=== PATIENT | female | born 1965 | race African-American/Black ===

== ENCOUNTER 2020-06-07 12:36 | Inpatient (IN) ==
[2020-06-07] MEDS ORDERED: *HR* FentaNYL (PF) 100 MCG/2 ML VIAL ONE (12:46)
[2020-06-07] MEDS ORDERED: *HR* Propofol 200 MG/20 ML VIAL IVP ONE (12:46)
[2020-06-07] MEDS ORDERED: *HR* Midazolam HCl 2 MG/2 ML VIAL ONE (12:46)
[2020-06-07] MEDS ORDERED: Ondansetron 4 MG/2 ML VIAL ONE (12:47)
[2020-06-07] MEDS ORDERED: *HR* Succinylcholine 200 MG/10 ML VIAL IVP ONE (12:47)
[2020-06-07] MEDS ORDERED: Lidocaine -MPF 4% 5 ML AMPUL ONE (12:47)
[2020-06-07] MEDS ORDERED: Dexamethasone 4 MG/ML VIAL ONE (12:47)
[2020-06-07] MEDS ORDERED: *HR* Rocuronium Bromide 50 MG/5 ML VIAL ONE (12:47)
[2020-06-07] MEDS ORDERED: Lidocaine -MPF 2% 2 ML VIAL ONE (12:47)
[2020-06-07] MEDS ORDERED: Ondansetron 4 MG/2 ML VIAL IVP PRN (12:55)
[2020-06-07] MEDS ORDERED: *HR* Labetalol 20 MG/4 ML SYRINGE IVP PRN (12:55)
[2020-06-07] MEDS ORDERED: *HR* HYDROmorphone (PF) 1 MG/ML SYRINGE IVP PRN (12:55)
[2020-06-07] MEDS ORDERED: *HR* Promethazine 25 MG/ML VIAL IVP PRN (12:55)
[2020-06-07] MEDS ORDERED: CeFAZolin Syr 2,000MG/20 ML 2,000 MG/20 ML SYRINGE IVPB ONE (12:59)
[2020-06-07] MEDS ORDERED: Famotidine 20 MG/2 ML VIAL IVP ONE (13:00)
[2020-06-07] MEDS ORDERED: Ringers Solution, Lactated 1,000 ML IVC SCH ×2 (13:00→13:15)
[2020-06-07] MEDS ORDERED: Ipratropium/Albuterol Neb 3 ML IH PRN (13:10)
[2020-06-07] MEDS ORDERED: Ketorolac 30 MG/ML VIAL ONE (14:14)
[2020-06-07] MEDS ORDERED: *HR* HYDROMORPHONE 2 MG/ML VIAL ONE (14:25)
[2020-06-07] MEDS: Gabapentin 300 MG CAPSULE PO SCH ×2 (17:10→23:04)
[2020-06-07] MEDS: Ketorolac 15 MG/ML VIAL IVP SCH ×2 (17:10→23:04)
[2020-06-07] MEDS: *HR* HYDROcodone/Acet 5/325 mg TABLET PO PRN (19:52)
[2020-06-08] MEDS: *HR* HYDROcodone/Acet 5/325 mg TABLET PO PRN ×2 (04:24→18:54)
[2020-06-08] MEDS: Ketorolac 15 MG/ML VIAL IVP SCH ×4 (06:47→23:48)
[2020-06-08] MEDS: Gabapentin 300 MG CAPSULE PO SCH ×3 (07:48→20:32)
[2020-06-08] MEDS ORDERED: RAMELTEON 8 MG PO PRN (08:06)
[2020-06-08] MEDS ORDERED: Fluticasone Propionate Nasal 50 MCG/SPRAY BOTTLE NS PRN (08:06)
[2020-06-08] MEDS: estradioL 1 MG TABLET PO SCH (08:59)
[2020-06-08] MEDS: Aspirin 81 MG TAB.CHEW PO SCH (08:59)
[2020-06-08] MEDS: amLODIPine 5 MG TABLET PO SCH (08:59)
[2020-06-08] MEDS: (Biotin 1 MG) PO SCH (08:59)
[2020-06-08] MEDS: Budesonide/Formoterol 160/4.5 1 PUFF INH IH SCH ×2 (10:18→22:07)
[2020-06-08 10:22] LABS: BUN/Creatinine Ratio 16 (6-26); Blood Urea Nitrogen 15 mg/dL (6-20); Calcium 9.5 mg/dL (8.6-10.3); Carbon Dioxide 26 mEq/L (23-29); Chloride 98 mEq/L (98-107); Glucose 165 mg/dL (70-105); Osmolality,Calculated 281 (280-300); Potassium 3.6 mEq/L (3.5-5.1); Sodium 133 mEq/L (136-145); eGFR For African Americans > 60 (> 60); eGFR For Non-African Americans > 60 (> 60)
[2020-06-09] MEDS: Ketorolac 15 MG/ML VIAL IVP SCH (05:18)
[2020-06-09 07:04] VITALS: BP 122/77
[2020-06-09] MEDS: estradioL 1 MG TABLET PO SCH (07:33)
[2020-06-09] MEDS: Aspirin 81 MG TAB.CHEW PO SCH (07:33)
[2020-06-09] MEDS: Gabapentin 300 MG CAPSULE PO SCH (07:33)
[2020-06-09] MEDS: amLODIPine 5 MG TABLET PO SCH (07:33)
[2020-06-09] MEDS: (Biotin 1 MG) PO SCH (07:36)
[2020-06-09] MEDS: Budesonide/Formoterol 160/4.5 1 PUFF INH IH SCH (08:02)
== END 2020-06-09 10:42 | disposition home or self-care (01) | DRG 165 ==
LOC: SAMDAY 12:36 → 2NNU 15:51
PROVIDERS: ADMIT Thoracic Surgery (Cardiothoracic Vascular Surgery); ATTEND Thoracic Surgery (Cardiothoracic Vascular Surgery)